=== PATIENT | female | born 1965 | race Caucasian/White ===

== ENCOUNTER 2017-08-14 16:03 | Emergency (ER) | payer MEDICAID ==
[~2017-08-14] VITALS: Ht 172.7 cm; Wt 78.6 kg
[2017-08-14 16:07] VITALS: BP 106/62
== END 2017-08-14 17:57 | disposition home or self-care (01) ==
LOC: ED 17:20
DX: R05 Cough (principal); J01.90 Acute sinusitis, unspecified
CPT/HCPCS: 71020; 99284

== ENCOUNTER 2017-08-23 08:19 | Emergency (ER) | payer MEDICAID ==
[~2017-08-23] VITALS: Ht 172.7 cm; Wt 77.0 kg
[2017-08-23] MEDS ORDERED: ACETAMINOPHEN 500 MG TABLET PO ONE (09:00)
[2017-08-23] MEDS ORDERED: SODIUM CHLORIDE FLUSH 10ML SYR IVF ONE (09:00)
[2017-08-23] MEDS ORDERED: SODIUM CHLORIDE 0.9% 1,000ML IVBOLUS ONE (09:00)
[2017-08-23] MEDS ORDERED: ACETAMINOPHEN 500 MG TABLET ONE (09:06)
[2017-08-23 09:24] LABS: RAPID INFLUENZA A Negative (Negative); RAPID INFLUENZA B Negative (Negative)
[2017-08-23 09:29] LABS: BASOPHILS # (AUTO) 0.02 x10^3/uL (0-0.1); BASOPHILS % (AUTO) 0 % (0-1); EOSINOPHILS # (AUTO) 0.12 x10^3/uL (0-0.4); EOSINOPHILS % (AUTO) 2 % (1-7); LYMPHOCYTES # (AUTO) 0.61 x10^3/uL (1-3.4); LYMPHOCYTES % (AUTO) 12 % (22-44); MD NO; MEAN CORPUSCULAR HEMOGLOBIN 22.2 pg (27.0-34.8); MEAN CORPUSCULAR VOLUME 69.4 fL (80-100); MEAN PLATELET VOLUME 9.4 fL (7.4-10.4); MONOCYTES # (AUTO) 0.34 x10^3/uL (0.2-0.8); MONOCYTES % (AUTO) 7 % (2-9); NEUTROPHILS # (AUTO) 4.08 x10^3/uL (1.8-6.8); NEUTROPHILS % (AUTO) 79 % (42-75); PLATELET COUNT 215 x10^3/uL (130-400); RED BLOOD COUNT 4.07 x10^6/uL (3.82-5.3); RED CELL DISTRIBUTION WIDTH 21.1 % (9.6-15.2)
[2017-08-23 09:43] LABS: ALBUMIN 4.1 g/dL (3.4-5.0); ANION GAP 10 mmol/L (5-15); CALCIUM 8.2 mg/dL (8.5-10.1); CHLORIDE 104 mmol/L (98-107)
[2017-08-23 09:44] LABS: CREATININE 1.67 mg/dL (0.55-1.02)
[2017-08-23] MEDS ORDERED: CEFTRIAXONE 1,000 MG IM ONE (10:00)
[2017-08-23] MEDS ORDERED: CEFTRIAXONE 1,000 MG ONE (10:08)
[2017-08-23 10:14] VITALS: BP 96/55
== END 2017-08-23 10:54 | disposition home or self-care (01) ==
LOC: ED 09:25
DX: J15.9 Unspecified bacterial pneumonia (principal); B96.89 Other specified bacterial agents as the cause of diseases classified elsewhere; Z87.891 Personal history of nicotine dependence
CPT/HCPCS: 36415; 71020; 80048; 82040; 83605; 85025; 87400; 96372; 99285; J0696

== ENCOUNTER 2021-03-04 19:55 | Emergency (ER) | payer BC, MEDICAID ==
[~2021-03-04] VITALS: Ht 172.7 cm; Wt 61.5 kg
--- NOTE | 2021-03-04 21:01 | NUR ---
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
--- NOTE | 2021-03-04 21:09 | NUR ---
PT PLACED IN ROOM, W/ INSTRUCTION TO GET INTO GOWN. BEDSIDE
--- NOTE | 2021-03-04 21:42 | NUR ---
PT IS UNAWARE OF SIZE NEEDED FOR COLOSTOMY CHANGE. INFORMED HER WE DON'T CARE OSTOMY SUPPLIES ON OUR UNIT AND THAT WE WILL ORDER HER THE SUPPLIES NEEDED AND THEN SHE CAN CHANGE IT. PIV ATTEMPT W/O SUCCESS, ANITA POOLE RN BEDSIDE NOW.
--- NOTE | 2021-03-04 22:20 | NUR ---
PIV OBTAINED, SHIRLEY GUERRERO. CALL LIGHT W/IN REACH. FOLLOWED UP ON SUPPLIES FOR COLOSTOMY W/ LEARNING SERVICES COORDINATOR. HOUSE SUP IS GATHERING SUPPLIES NOW.
--- NOTE | 2021-03-04 22:42 | NUR ---
PT STATED SHE WAS HAVING PANIC ATTACK AND USUALLY TAKES SEROQUEL, BUT WAS DISTRACTED WHEN SHE WAS PROVIDED SUPPLIES TO CHANGE OSTOMY. THIS RN WAS SUPPORT DURING PROCESS, PT DID WELL. PT UNHOOKED FROM MONITORS SHE STATED SHE WANTED TO GO TO THE RESTROOM URINE CUP PROVIDED W/ INSTRUCTION FOR CLEAN CATCH. STEADY GAIT.
[2021-03-04 22:46] LABS: ALANINE AMINOTRANSFERASE 14 U/L (12-78); ALBUMIN 3.5 g/dL (3.4-5.0); ANION GAP 5 mmol/L (5-15); CALCIUM 8.9 mg/dL (8.5-10.1); CHLORIDE 107 mmol/L (98-107)
[2021-03-04 22:48] LABS: ALKALINE PHOSPHATASE 106 U/L (45-117); BILIRUBIN,TOTAL 0.4 mg/dL (0.2-1.0)
[2021-03-04 22:49] LABS: BASOPHILS % (AUTO) 1 % (0-1); EOSINOPHILS % (AUTO) 2 % (1-7); LYMPHOCYTES % (AUTO) 38 % (22-44); MEAN CORPUSCULAR HEMOGLOBIN 29.9 pg (27.0-34.8); MEAN CORPUSCULAR HGB CONC 33.7 g/dL (32.4-35.8); MEAN PLATELET VOLUME 8.9 fL (7.4-10.4); MONOCYTES % (AUTO) 7 % (2-9); NEUTROPHILS % (AUTO) 52 % (42-75); PLATELET COUNT 254 x10^3/uL (130-400); RED BLOOD COUNT 3.56 x10^6/uL (3.82-5.3); RED CELL DISTRIBUTION WIDTH 15.6 % (9.6-15.2)
--- NOTE | 2021-03-04 22:57 | NUR ---
PT ABLE TO PROVIDE SAMPLE, COLLECTED AND TUBED TO LAB. SHIRLEY GUERRERO. CALL LIGHT W/IN REACH
[2021-03-04] MEDS ORDERED: POTASSIUM CHLORIDE 20 MEQ TAB.ER.PRT PO ONE (23:00)
[2021-03-04] MEDS ORDERED: POTASSIUM CHLORIDE 20 MEQ TAB.ER.PRT ONE (23:09)
--- NOTE | 2021-03-04 23:21 | NUR ---
PT TO CT
[2021-03-04] MEDS ORDERED: OMNIPAQUE 350 MG/ML, 100ML BOTTLE ONE (23:28)
--- NOTE | 2021-03-04 23:31 | NUR ---
PT LAYING ON SIDE IN [facility] MEDICATED PER MAR, IS REQUESTING SOMETHING FOR PAIN. VSS, SHIRLEY. CALL LIGHT W/IN REACH.
[2021-03-04 23:50] LABS: MICROSCOPIC INDICATED
[2021-03-05] MEDS ORDERED: ACETAMINOPHEN 325 MG TABLET PO ONE
[2021-03-05] MEDS ORDERED: DICYCLOMINE 20 MG TABLET PO ONE
[2021-03-05] MEDS ORDERED: DICYCLOMINE 20 MG TABLET ONE (00:02)
[2021-03-05] MEDS ORDERED: ACETAMINOPHEN 500 MG TABLET ONE (00:02)
[2021-03-05] MEDS ORDERED: ACETAMINOPHEN 325 MG TABLET ONE (00:14)
--- NOTE | 2021-03-05 00:17 | NUR ---
PT MEDICATED PER MAR, VSS, NADN. CALL LIGHT W/IN REACH
[2021-03-05 00:54] VITALS: BP 139/94
--- NOTE | 2021-03-05 01:35 | NUR ---
Patient given discharge instructions and they have confirmed that they understand the instructions. Patient ambulatory with steady gait.
== END 2021-03-05 02:04 | disposition home or self-care (01) ==
LOC: ED 23:50
DX: K52.9 Noninfective gastroenteritis and colitis, unspecified (principal); F17.200 Nicotine dependence, unspecified, uncomplicated
CPT/HCPCS: 36415; 74177; 80053; 81001; 85025; 87086; 99285; Q9967